=== PATIENT | female | born 1945 | race Caucasian/White ===

== ENCOUNTER 2022-12-12 12:37 | Outpatient (CLI) | payer BC, SELFPAY | END 2022-12-12 12:38 | disposition home or self-care (01) | LOC: INJ CL 12:38 | PROVIDERS: PCP Student in an Organized Health Care Education/Training Program; Visit Provider Family Medicine | DX: M54.16 Radiculopathy, lumbar region (principal); M51.36 Other intervertebral disc degeneration, lumbar region | CPT/HCPCS: 62323; J0702; Q9966 ==

== ENCOUNTER 2024-05-20 10:03 | Outpatient (CLI) | payer BC, SELFPAY | END 2024-05-20 10:04 | disposition home or self-care (01) | PROVIDERS: Visit Provider Family Medicine | DX: M54.16 Radiculopathy, lumbar region (principal); M48.062 Spinal stenosis, lumbar region with neurogenic claudication; M51.36 Other intervertebral disc degeneration, lumbar region | CPT/HCPCS: 62323; Q9966 ==

== ENCOUNTER 2024-10-14 10:16 | Outpatient (CLI) | payer BC, SELFPAY | END 2024-10-14 10:17 | disposition home or self-care (01) | PROVIDERS: Visit Provider Family Medicine | DX: M54.16 Radiculopathy, lumbar region (principal) | CPT/HCPCS: 64483; 64484; J1100; Q9966 ==